=== PATIENT | female | born 1985 | race Caucasian/White ===

== ENCOUNTER 2016-07-28 20:07 | Emergency (ER) | payer OTHER ==
--- NOTE | 2016-07-28 22:01 | ED ORDER SUMMARY ---
..... Patient: RITA SHINE OrderSheet [facility] VisitID: [id number] [address] [place] [address] 31y, F Registration Date/Time: 07/28/2016 ORDER SHEET Weight: 102.0 kg (stated) Allergies: Septra GENERAL ORDERS: CBC w Diff Urgent (20:30 07/28/2016 RCollier R.N. per protocol) (Ack 20:34 LMuller) (20:34 LMuller) UA-Culture if indicated Urgent (20:30 07/28/2016 RCollier R.N. per protocol) (Ack 20:34 LMuller) (22:30 RCollier R.N.) Amylase Urgent (20:30 07/28/2016 RCollier R.N. per protocol) (Ack 20:34 LMuller) (20:34 LMuller) Lipase Urgent (20:30 07/28/2016 RCollier R.N. per protocol) (Ack 20:34 LMuller) (20:34 LMuller) Urine Urgent (20:30 07/28/2016 RCollier R.N. per protocol) (Ack 20:34 LMuller) (22:30 RCollier R.N.) NPO (20:30 07/28/2016 RCollier R.N. per protocol) (20:35 JQuivey R.N.) CMP Urgent (20:48 07/28/2016 HBivens A.R.N.P.) (Ack 20:53 LMuller) (20:54 RCollier R.N.) MEDICATION ORDERS: IV FLUIDS: IV Saline Lock (20:30 07/28/2016 RCollier R.N. per protocol) (Ack 20:31 RCollier R.N.) IV NS : initial bolus none -, then 1000 mL/hr (NOW) (20:38 07/28/2016 JQuivey R.N. verbal order read back to HBivens A.R.N.P.) (20:38 JQuivey R.N.) Toradol IV 30 mg (NOW) (20:48 07/28/2016 HBivens A.R.N.P.) (Ack 20:49 RCchavoier R.N.) (20:54 RCollier R.N.) Zofran IV 4 mg (NOW) (20:48 07/28/2016 HBivenspencer A.R.N.P.) (Ack 20:49 RCollier R.N.) (20:54 RCollier R.N.) ORDER SHEET NOTES: [Electronically signed by Andree Roy R.N. (22:31 07/28/2016)] [Electronically signed by Magaly DavidsonR.N.PGuy (22:50 07/28/2016)] [Electronically locked/signed by Andree Roy R.N. (22:31 07/28/2016)]
--- NOTE | 2016-07-28 22:01 | ED CLINICAL REPORT ---
Clinical Report - Physicians/Mid Levels [facility] [address] [place] [address] 07/28/2016 20:08 Patient: RITA SHINE Time Seen: 20:40; initial patient contact, initial documentation, patient care assumed. Arrived- By private vehicle. Historian- patient. HISTORY OF PRESENT ILLNESS Chief Complaint: VOMITING. This started today and is still present. It was abrupt in onset. The patient has had nausea. She has had severe vomiting (tntc). The vomiting has occurred numerous times and has been bilious. No feculent emesis, blood-tinged emesis, coffee-grounds emesis, frankly bloody emesis or unusually dark emesis. No diarrhea, black stools or bloody stools. She has had constant abdominal pain. The pain is described as located in the RUQ, epigastrium and LUQ and associated with nausea and vomiting. No diarrhea or radiation of abdominal pain to the back. The illness is described as moderate. Similar symptoms previously: None. Recent medical care: Not recently seen/assessed. REVIEW OF SYSTEMS No fever, muscle aches, difficulty with urination, dark urine or chest pain. No difficulty breathing. All systems otherwise negative, except as recorded above. PAST HISTORY See nurses notes. PROBLEMS: Obesity. Thyroid Disease. --20:17 Andree Roy R.N. ADDITIONAL SURGERIES: . --20:17 Andree Roy R.N. SOCIAL HISTORY Never smoker. No alcohol use or drug use. No recent travel. Is a local resident. FAMILY HISTORY Negative. ADDITIONAL NOTES The nursing notes have been reviewed with agreement regarding the chief complaint, HPI, ROS, PMH and patient medications and allergies. PHYSICAL EXAM Vital Signs: 07/28/2016 20:15 BP: 140/79. HR: 80. RR: 15. O2 saturation: 97%. Temp: 98.4 F. Pain level now: 8/10. Have been reviewed as normal and appear to be correct. Appearance: Alert. Oriented X3. No acute distress. Eyes: Pupils equal, round and reactive to light. Eyes normal inspection. Neck: Normal inspection. Neck supple. CVS: Normal heart rate and rhythm. Heart sounds normal. Pulses normal. Respiratory: No respiratory distress. Breath sounds normal. Abdomen: Soft. Mild tenderness in the right upper quadrant, epigastric area and left upper quadrant. No guarding, rebound tenderness or Cunningham's, obturator or psoas sign present. Bowel sounds normal. No organomegaly. No mass. Mildly obese. Tenderness present. Back: Normal inspection. Skin: Skin warm and dry. Normal skin color. No rash. Normal skin turgor. Extremities: Extremities exhibit normal ROM. No lower extremity edema. Neuro: Oriented X 3. No motor deficit. No sensory deficit. LABS, X-RAYS, AND EKG Laboratory Tests: UA-Culture if indicated: (KEISHA: 07/28/2016 21:38) ( [facility] 07/28/[facility] 21:54) Final results Test Result Flag Units (Reference) URINE COLOR YELLOW URINE APPEARANCE CLEAR URINE GLUCOSE NEGATIVE (NEGATIVE) URINE BILIRUBIN NEGATIVE (NEGATIVE) URINE KETONE 2+ (NEGATIVE) URINE SPECIFIC GRAVITY 1.020 (1.010-1.030) URINE PH 7.5 (5.0-8.0) URINE PROTEIN TRACE (NEGATIVE) URINE UROBILINOGEN 1.0 EU/dL (0.2-1.0) URINE NITRITE NEGATIVE (NEGATIVE) URINE BLOOD NEGATIVE (NEGATIVE) URINE LEUK ESTERASE NEGATIVE (NEGATIVE) URINE RBC NONE SEEN rbc/hpf (0-1) URINE WBC 0-1 wbc/hpf (0-1) URINE EPITHELIAL CELLS 1-3 EPI/hpf (0-5) URINE BACTERIA TRACE (<1+) (NONE SEEN) URINE COMMENT CULT NOT INDICATED 1+ MUCUSURINE CULTURES ARE SET-UP BASED ON THE FOLLOWING CRITERIA:POSITIVE NITRITEPOSITIVE LEUKOCYTE ESTERASEGREATER THAN 10 WHITE BLOOD CELLSMODERATE (2+) OR GREATER BACTERIA Urine: (KEISHA: 07/28/2016 21:38) ( [facility] [place]/28[place] 21:50) Final results Test Result Flag Units (Reference) URINE NEGATIVE CBC w Diff: (KEISHA: 07/28/2016 20:28) ( MsgRcvd 07/28/2016 20:42) Final results Test Result Flag Units (Reference) WHITE BLOOD COUNT 10.1 K/uL (4.5-11.5) RED BLOOD COUNT 4.37 M/uL (4.00-5.20) HEMOGLOBIN 13.0 gm/dL (12.0-16.0) HEMATOCRIT 39.3 % (36.0-46.0) MEAN CELL VOLUME 90 fL (80-100) MEAN CORPUSCULAR HGB 30 pg (26-34) MEAN CORPUSCULAR HGB CONC 33 g/dL (31-37) RED CELL DISTRIBUTION WIDTH 13.4 % (11.6-14.8) PLATELET COUNT 227 K/uL (150-400) NEUTROPHIL % 83.1 H % (50-75) LYMPH % 11.2 L % (25-40) MONO % 5.0 % (3-14) EOSINOPHIL % 0.4 % (0-4) BASOPHIL % 0.3 % (0-2) CMP: (KEISHA: 07/28/2016 20:18) ( MsgRcvd 07/28/2016 21:25) Final results Test Result Flag Units (Reference) GLUCOSE 107 mg/dL (70-110) BUN 13 mg/dL (7-18) CREATININE 1.2 mg/dL (0.6-1.3) Estimated GFR 54.99 mL/min Estimated GFR- >60 mL/min Note: Persistent reduction over 3 months in eGFR<60 mL/min/1.73 m2 defines CKD. Patients with eGFR values>=60 mL/min/1.73 m2 may also have CKD if evidence ofpersistent proteinuria. Additional information may be foundat www.kidney.org. SODIUM 142 mmol/L (136-145) POTASSIUM 4.2 mmol/L (3.5-5.1) CHLORIDE 104 mmol/L (98-107) CARBON DIOXIDE 25 mmol/L (21-32) CALCIUM 9.3 mg/dL (8.5-10.1) TOTAL PROTEIN 8.5 H g/dL (6.4-8.2) ALBUMIN 3.9 g/dL (3.3-5.0) BILIRUBIN, TOTAL 0.6 mg/dL (0.0-1.0) ALKALINE PHOSPHATASE 82 U/L (46-116) AST (SGOT) 27 U/L (15-37) ALT (SGPT) 34 U/L (12-78) Lipase: (KEISHA: 07/28/2016 20:28) ( MsgRcvd 07/28/2016 20:53) Final results Test Result Flag Units (Reference) LIPASE 119 U/L (73-393) AMYLASE 63 U/L (25-115) . PROGRESS AND PROCEDURES Patient counseled in person regarding the patient's stable condition, test results and diagnosis. 22:00. Differential Diagnosis: I considered gastritis, peptic ulcer disease, gastroesophageal reflux disease, gastroparesis, Crohn's disease, ulcerative colitis, small bowel obstruction, colonic obstruction, colon cancer, gastroenteritis, cholecystitis, pancreatitis, viral syndrome, enterocolitis, urinary tract infection, hepatitis, sepsis, drugs and as a possible cause of vomiting in this patient. This is a partial list of diagnoses considered. Above considerations are based on history, physical exam and laboratory data. Differential diagnosis was discussed with patient. Disposition: Discharged home in good and improved condition (22:01). Condition: good and stable. CLINICAL IMPRESSION Intractable vomiting with nausea. No dehydration or volume depletion. Not bilious. Acute right upper quadrant, epigastric and left upper quadrant abdominal pain. INSTRUCTIONS Take clear liquids only (frequent sips) for the next 24 hours until better. May continue medications with sips only. Advance diet as tolerated. Avoid. Warnings: GENERAL WARNINGS: Return or contact your physician immediately if your condition worsens or changes unexpectedly, if not improving as expected, or if other problems arise. SPECIFICALLY, return if you develop pain in the abdomen or pelvis, fever, the inability to keep fluids down, blood in vomitus, blood in diarrhea, fainting or lightheadedness. Prescription Medications: Zofran 4 mg: Take 1 orally every six hours as needed for nausea/vomiting. Dispense ten (10). No refills. Substitution is permissible. Ultram 50 mg tablets: take 1-2 orally every 6 hours as needed for pain. Dispense twenty (20). No refills. Substitution is permissible. Follow-up: Follow up with your doctor in about two days even if well. Call for an appointment. Summary of care provided to patient. Understanding of the discharge instructions verbalized by patient. (Electronically signed by Magaly Davidson A.R.N.P. 07/28/2016 22:50)
--- NOTE | 2016-07-28 22:01 | ED NURSING NOTES ---
Clinical Report - Nurses [facility] [address] [place] [address] 07/28/2016 20:08 Patient: RITA SHINE TRIAGE Triage time 20:15. Acuity: LEVEL 3. Chief Complaint: ABDOMINAL PAIN, NAUSEA and VOMITING. Alert. No acute distress. --20:20 Andree Roy R.N. 20:15 07/28/16. BP: 140/79. HR: 80. RR: 15. O2 saturation: 97% on room air. Temp: 98.4 F (oral). Pain level now: 01/15. --20:20 Andree Roy R.N. Weight: 102 kg stated. Height/Length: 69 inches Per Patient. BMI: 33.2. --20:19 Andree Roy R.N. Medications None. --20:16 Andree Roy R.N. Allergies . --20:16 Andree Roy R.N. History Arrived by private vehicle. Historian: patient. Primary physician (Mitzy). This started today. Onset. (at about 0530). 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 PAST MEDICAL HX: Immunizations: up-to-date. Last normal menstrual period unknown. SOCIAL HX: Never smoker. No alcohol use or drug use. --20:20 Andree Roy R.N. PROBLEMS: Obesity. Thyroid Disease. --20:17 Andree Roy R.N. ADDITIONAL SURGERIES: . --20:17 Andree Roy R.N. Interventions ID band on patient. To treatment room. --20:20 Andree Roy R.N. PHYSICAL ASSESSMENT Ambulatory to room. Patient gowned. GENERAL / NEURO / PSYCH: Alert. Oriented X 4. Appears in no acute distress. HEENT: Mucous membranes are pink. RESPIRATORY: Respirations not labored. CVS: Capillary refill less than 2 seconds. SKIN: Skin is warm and dry. --20:20 Andree Roy R.N. NURSING PROGRESS NOTES Pulse oximeter and NIBP monitor placed on patient; monitor alarms on. --20: Andree Roy R.N. Two patient identifiers checked. Call light placed in reach. Side rails up x 1. Bed placed in lowest position. Brakes of bed on. --20: Andree Roy R.N. Patient ready for evaluation- chart flagged. --20:21 Andree Roy R.N. 20:28 07/28/2016 Site #1 started via IV in the right antecubital space with an 20g angiocath, with aseptic technique and good blood return; one attempt. Blood drawn: rainbow set. Labeled in the presence of the patient and sent to the lab. Saline lock flushed with 10 mL saline. --20:28 Andree Roy R.N. ( pt aware of need for urine, unable to go at this time.). --20:29 Andree Roy R.N. 20:38 07/28/2016 Started bag #1 1000 mL IV Fluids IV NS (Saline); at 1000 mL/hr over 1 hour(s) via site #1 --20:38 Donald Kiser R.N. 20:52 07/28/2016 Zofran (Ondansetron HCl) IVP 4 mg given over 30 second(s) via site #1. Allergies verified and confirmed 5 rights. IV patency established. IV site checked: no pain, redness, or swelling. IV flushed thoroughly pre- and post-medication administration. IVP given by RN. --20:54 Andree Roy R.N. 20:53 07/28/2016 Toradol IVP 30 mg given over 1 minute(s) via site #1. Allergies verified and confirmed 5 rights. IV patency established. IV site checked: no pain, redness, or swelling. IV flushed thoroughly pre- and post-medication administration. IVP given by RN. --20:54 Andree Roy R.N. 21:35- pt ambulates to restroom to obtain urine sample. --21:35 Andree Roy R.N. 21:39. Patient ID band checked for patient name and birthdate: patient confirmed. Instructions provided to collect clean catch urine and patient verbalized understanding. Clean catch urine collected with return of yellow-colored sara-colored clear urine; sample sent to lab. Specimen labeled in the presence of the patient. --21:39 Andree Roy R.N. 21:39 07/28/16. BP: 132/73. HR: 79. RR: 15. O2 saturation: 98% on room air. Camarena-Gao pain scale: 09/15. --21:40 Andree Roy R.N. DISPOSITION / DISCHARGE 22:27 07/28/16. BP: 107/77. HR: 75. RR: 15. O2 saturation: 97% on room air. Temp: deferred. Camarena-Gao pain scale: 09/15. --22:28 Andree Roy R.N. Condition at departure: stable. No learning barriers present. Discharge instructions provided and reviewed with the patient. Reviewed medication(s) side effects, precautions, dosing and course information. Prescription(s) given to the patient. Patient verbalized understanding. Written instructions provided in Lao. The patient was discharged home and accompanied by mucking machine operator. She left the Emergency Department ambulatory and via private vehicle. Security Police driving. --22:28 Andree Roy R.N. 21:40 07/28/2016 IV Fluids IV NS Discontinued: bag #1 completed. Total amount infused: 1000 mL. IV patency established. IV site checked: no pain, redness, or swelling. IV flushed thoroughly. --22:30 Andree Roy R.N. 22:25 07/28/2016 Site #1 removed upon discharge. Catheter intact. Manual pressure and bandage applied. --22:28 Andree Roy R.N. Locked/Released at 07/28/2016 22:31 by Andree Roy R.N.
--- NOTE | 2016-07-28 22:01 | ED NURSING NOTES ---
Clinical Report - Nurses [facility] [address] [place] [address] 07/28/2016 20:08 Patient: RITA SHINE TRIAGE Triage time 20:15. Acuity: LEVEL 3. Chief Complaint: ABDOMINAL PAIN, NAUSEA and VOMITING. Alert. No acute distress. --20:20 Andree Roy R.N. 20:15 07/28/16. BP: 140/79. HR: 80. RR: 15. O2 saturation: 97% on room air. Temp: 98.4 F (oral). Pain level now: 01/15. --20:20 Andree Roy R.N. Weight: 102 kg stated. Height/Length: 69 inches Per Patient. BMI: 33.2. --20:19 Andree Roy R.N. Medications None. --20:16 Andree Roy R.N. Allergies . --20:16 Andree Roy R.N. History Arrived by private vehicle. Historian: patient. Primary physician (Mitzy). This started today. Onset. (at about 0530). 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 PAST MEDICAL HX: Immunizations: up-to-date. Last normal menstrual period unknown. SOCIAL HX: Never smoker. No alcohol use or drug use. --20:20 Andree Roy R.N. PROBLEMS: Obesity. Thyroid Disease. --20:17 Andree Roy R.N. ADDITIONAL SURGERIES: . --20:17 Andree Roy R.N. Interventions ID band on patient. To treatment room. --20:20 Andree Roy R.N. PHYSICAL ASSESSMENT Ambulatory to room. Patient gowned. GENERAL / NEURO / PSYCH: Alert. Oriented X 4. Appears in no acute distress. HEENT: Mucous membranes are pink. RESPIRATORY: Respirations not labored. CVS: Capillary refill less than 2 seconds. SKIN: Skin is warm and dry. --20:20 Andree Roy R.N. NURSING PROGRESS NOTES Pulse oximeter and NIBP monitor placed on patient; monitor alarms on. --20: Andree Roy R.N. Two patient identifiers checked. Call light placed in reach. Side rails up x 1. Bed placed in lowest position. Brakes of bed on. --20: Andree Roy R.N. Patient ready for evaluation- chart flagged. --20:21 Andree Roy R.N. 20:28 07/28/2016 Site #1 started via IV in the right antecubital space with an 20g angiocath, with aseptic technique and good blood return; one attempt. Blood drawn: rainbow set. Labeled in the presence of the patient and sent to the lab. Saline lock flushed with 10 mL saline. --20:28 Andree Roy R.N. ( pt aware of need for urine, unable to go at this time.). --20:29 Andree Roy R.N. 20:38 07/28/2016 Started bag #1 1000 mL IV Fluids IV NS (Saline); at 1000 mL/hr over 1 hour(s) via site #1 --20:38 Donald Kiser R.N. 20:52 07/28/2016 Zofran (Ondansetron HCl) IVP 4 mg given over 30 second(s) via site #1. Allergies verified and confirmed 5 rights. IV patency established. IV site checked: no pain, redness, or swelling. IV flushed thoroughly pre- and post-medication administration. IVP given by RN. --20:54 Andree Roy R.N. 20:53 07/28/2016 Toradol IVP 30 mg given over 1 minute(s) via site #1. Allergies verified and confirmed 5 rights. IV patency established. IV site checked: no pain, redness, or swelling. IV flushed thoroughly pre- and post-medication administration. IVP given by RN. --20:54 Andree Roy R.N. 21:35- pt ambulates to restroom to obtain urine sample. --21:35 Andree Roy R.N. 21:39. Patient ID band checked for patient name and birthdate: patient confirmed. Instructions provided to collect clean catch urine and patient verbalized understanding. Clean catch urine collected with return of yellow-colored sara-colored clear urine; sample sent to lab. Specimen labeled in the presence of the patient. --21:39 Andree Roy R.N. 21:39 07/28/16. BP: 132/73. HR: 79. RR: 15. O2 saturation: 98% on room air. Camarena-Gao pain scale: 09/15. --21:40 Andree Roy R.N. DISPOSITION / DISCHARGE 22:27 07/28/16. BP: 107/77. HR: 75. RR: 15. O2 saturation: 97% on room air. Temp: deferred. Camarena-Gao pain scale: 09/15. --22:28 Andree Roy R.N. Condition at departure: stable. No learning barriers present. Discharge instructions provided and reviewed with the patient. Reviewed medication(s) side effects, precautions, dosing and course information. Prescription(s) given to the patient. Patient verbalized understanding. Written instructions provided in Vietnamese. The patient was discharged home and accompanied by websphere architect. She left the Emergency Department ambulatory and via private vehicle. Unscrambler driving. --22:28 Andree Roy R.N. 21:40 07/28/2016 IV Fluids IV NS Discontinued: bag #1 completed. Total amount infused: 1000 mL. IV patency established. IV site checked: no pain, redness, or swelling. IV flushed thoroughly. --22:30 Andree Roy R.N. 22:25 07/28/2016 Site #1 removed upon discharge. Catheter intact. Manual pressure and bandage applied. --22:28 Andree Roy R.N. Locked/Released at 07/28/2016 22:31 by Andree Roy R.N.
--- NOTE | 2016-07-28 22:01 | ED ORDER SUMMARY ---
..... Patient: RITA SHINE OrderSheet [facility] VisitID: [id number] [address] [place] [address] 31y, F Registration Date/Time: 07/28/2016 ORDER SHEET Weight: 102.0 kg (stated) Allergies: Septra GENERAL ORDERS: CBC w Diff Urgent (20:30 07/28/2016 RCollier R.N. per protocol) (Ack 20:34 LMuller) (20:34 LMuller) UA-Culture if indicated Urgent (20:30 07/28/2016 RCollier R.N. per protocol) (Ack 20:34 LMuller) (22:30 RCollier R.N.) Amylase Urgent (20:30 07/28/2016 RCollier R.N. per protocol) (Ack 20:34 LMuller) (20:34 LMuller) Lipase Urgent (20:30 07/28/2016 RCollier R.N. per protocol) (Ack 20:34 LMuller) (20:34 LMuller) Urine Urgent (20:30 07/28/2016 RCollier R.N. per protocol) (Ack 20:34 LMuller) (22:30 RCollier R.N.) NPO (20:30 07/28/2016 RCollier R.N. per protocol) (20:35 JQuivey R.N.) CMP Urgent (20:48 07/28/2016 HBivens A.R.N.P.) (Ack 20:53 LMuller) (20:54 RCollier R.N.) MEDICATION ORDERS: IV FLUIDS: IV Saline Lock (20:30 07/28/2016 RCollier R.N. per protocol) (Ack 20:31 RCollier R.N.) IV NS : initial bolus none -, then 1000 mL/hr (NOW) (20:38 07/28/2016 JQuivey R.N. verbal order read back to HBivens A.R.N.P.) (20:38 JQuivey R.N.) Toradol IV 30 mg (NOW) (20:48 07/28/2016 HBivens A.R.N.P.) (Ack 20:49 RCchavoier R.N.) (20:54 RCollier R.N.) Zofran IV 4 mg (NOW) (20:48 07/28/2016 HBivenspencer A.R.N.P.) (Ack 20:49 RCollier R.N.) (20:54 RCollier R.N.) ORDER SHEET NOTES: [Electronically signed by Andree Roy R.N. (22:31 07/28/2016)] [Electronically signed by Magaly DavidsonR.N.PGuy (22:50 07/28/2016)] [Electronically locked/signed by Andree Roy R.N. (22:31 07/28/2016)]
--- NOTE | 2016-07-28 22:51 | ED MED RECONCILIATION SUMMARY ---
Patient: RITA SHINE Medication Reconciliation Report [facility] VisitID: [id number] [address] [place] [address] 31y, F Registration Date/Time: 07/28/2016 Weight: 102.0 kg Height/Length: 69 in. BMI: 33.2 ALLERGIES: Septra The patient's Home Medications are listed below: NONE. The source(s) of the original Home Medication information: Not obtained. The following Medications were given to the patient in the Emergency Department: IV NS IV Fluids bolus 0, then 1000 mL/hr, administered: 07/28/2016 8:38:00 PM Zofran [IVP] IVP 4 mg, administered: 07/28/2016 8:52:00 PM Toradol [IVP] IVP 30 mg, administered: 07/28/2016 8:53:00 PM The following Medications were prescribed to the patient: Zofran 4 mg: Take 1 orally every six hours as needed for nausea/vomiting. Dispense ten (10). No refills. Substitution is permissible. -- Magaly Davidson, Saida.R.N.P. Ultram 50 mg tablets: take 1-2 orally every 6 hours as needed for pain. Dispense twenty (20). No refills. Substitution is permissible. -- Magaly Davidson A.R.N.P.
--- NOTE | 2016-07-28 22:51 | ED DISCHARGE INSTRUCTIONS ---
Patient: RITA SHINE General Instructions [facility] VisitID: [id number] [address] [place] [address] 31y, F Registration Date/Time: 07/28/2016 Intractable vomiting with nausea. No dehydration or volume depletion. Not bilious. Acute right upper quadrant, epigastric and left upper quadrant abdominal pain. INSTRUCTIONS Take clear liquids only (frequent sips) for the next 24 hours until better. May continue medications with sips only. Advance diet as tolerated. Avoid. Warnings: GENERAL WARNINGS: Return or contact your physician immediately if your condition worsens or changes unexpectedly, if not improving as expected, or if other problems arise. SPECIFICALLY, return if you develop pain in the abdomen or pelvis, fever, the inability to keep fluids down, blood in vomitus, blood in diarrhea, fainting or lightheadedness. Prescription Medications: Zofran 4 mg: Take 1 orally every six hours as needed for nausea/vomiting. Dispense ten (10). No refills. Substitution is permissible. Ultram 50 mg tablets: take 1-2 orally every 6 hours as needed for pain. Dispense twenty (20). No refills. Substitution is permissible. Follow-up: Follow up with your doctor in about two days even if well. Call for an appointment. Summary of care provided to patient. Understanding of the discharge instructions verbalized by patient. ADDITIONAL INFORMATION Vomiting [6Yr-Adult] Vomiting is a common symptom that may be due to different causes. These include gastroenteritis ("stomach flu"), food poisoning and gastritis. There are other more serious causes of vomiting which may be hard to diagnose early in the illness. Therefore, it is important to watch for the warning signs listed below. The main danger from repeated vomiting is dehydration. This is due to excess loss of water and minerals from the body. When this occurs, body fluids must be replaced. Home Care: If symptoms are severe, rest at home for the next 24 hours. You may use acetaminophen (Tylenol) or ibuprofen (Motrin, Advil) to control fever, unless another medicine was prescribed. [NOTE : If you have chronic liver or kidney disease or ever had a stomach ulcer or GI bleeding, talk with your doctor before using these medicines.] (Aspirin should never be used in anyone under 18 years of age who is ill with a fever. It may cause severe liver damage.) Avoid tobacco and alcohol use, which may worsen your symptoms. If medicines for vomiting were prescribed, take as directed. Once vomiting stops, then follow these guidelines: During The First 12-24 Hours follow the diet below: FRUIT JUICES: Apple, grape juice, clear fruit drinks, and electrolyte replacement drinks. BEVERAGES: Soft drinks without caffeine; mineral water (plain or flavored), decaffeinated tea and coffee. SOUPS: Clear broth, consomm and bouillon DESSERTS: Plain gelatin, popsicles and fruit juice bars. As you feel better, you may add 6-8 ounces of yogurt per day. During The Next 24 Hours you may add the following to the above: Hot cereal, plain toast, bread, rolls, crackers Plain noodles, rice, mashed potatoes, chicken noodle or rice soup Unsweetened canned fruit (avoid pineapple), bananas Limit caffeine and chocolate. No spices or seasonings except salt. During The Next 24 Hours Gradually resume a normal diet, as you feel better and your symptoms lessen. Follow Up with your doctor as advised if you are not improving over the next 2-3 days. Get Prompt Medical Attention if any of the following occur: Constant right-sided lower abdominal pain or increasing general abdominal pain Continued vomiting (unable to keep liquids down) for 24 hours Frequent diarrhea (more than 5 times a day); blood (red or black color) or mucus in diarrhea Reduced urine output or extreme thirst Weakness, dizziness or fainting Unusually drowsy or confused Fever of 100.4F (38C) oral or higher, not better with fever medication Yellow color of the eyes or skin Viral Gastroenteritis (6Yr-Adult) Gastroenteritis is another name for thestomach flu.It is most often caused by a virus that affects the stomach and intestinal tract. Symptoms include stomach cramping and fever, vomiting and/or diarrhea, and can last from 2 to 7 days. The danger from repeated vomiting or diarrhea is dehydration. This is the loss of too much water and minerals from the body. When this occurs, body fluids must be replaced. Antibiotics are not effective for this illness, but simple home treatment will be helpful. Home Care If symptoms are severe, rest at home for the next 24 hours. Avoid tobacco, caffeine, and alcohol use, which can worsen symptoms. Acetaminophen (Tylenol) or ibuprofen (Motrin, Advil) may be usedfor fever or pain unless another medication was prescribed. NOTE: If you have chronic liver or kidney disease or ever had a stomach ulcer or GI bleeding, talk with your doctor before using these medicines. Aspirin should never be used in anyone under 18 years of age who is ill with a fever. It may cause severe liver damage. If medicines for diarrhea or vomiting were prescribed, be sure they are takenonly as directed. If vomiting, drink small amounts of clear fluids (such as water, sports drinks, clear sodas) at frequent intervals to prevent dehydration. Start with 1 to 2 tablespoons every 10 minutes. Once vomiting stops, follow these guidelines: During The First 12 To 24 Hours follow the diet below: Beverages: Sport drinks like Gatorade, soft drinks without caffeine; earl emily, mineral water (plain or flavored), decaffeinated tea and coffee. Soups: Clear broth, consomm and bouillon Desserts: Plain gelatin (Jell-O), Popsicles and fruit juice bars. During The Next 24 Hours you may add the following to the above: Hot cereal, plain toast, bread, rolls, crackers Plain noodles, rice, mashed potatoes, chicken noodle or rice soup Unsweetened canned fruit (avoid pineapple), bananas Limit fat intake to less than 15 grams per day by avoiding margarine, butter, oils, mayonnaise, sauces, gravies, fried foods, peanut butter, meat, poultry, and fish. Limit fiber; avoid raw or cooked vegetables, fresh fruits (except bananas), and bran cereals. Limit caffeine and chocolate. Do not use spices or seasonings except salt. During The Next 24 Hours The patient can gradually resume a normal diet as symptoms lessen. Preventing Spread Hand washing with soap and water is the best way to prevent the spread of viruses. Caregivers should wash their hands before andafter touching the sick person. The sick person, as well as everyone in the family,should wash their hands after using the toilet and before meals. Clean the toilet after each use. People with diarrhea should not prepare food for others. If you are preparing your own foods, wash your hands before and after. Follow Up with your doctor as advised. Call your doctor if you are not improving over the next 2 to 3 days. If a stool (diarrhea) sample was taken, you may call in 2 days (or as directed) for the results. Get Prompt Medical Attention if any of the following occur: Increasing abdominal pain Continued vomiting (unable to keep liquids down) Frequent diarrhea (more than 5 times a day) Blood in vomit or stool (black or red color) Dark urine, reduced urine output, or extreme thirst Weakness, dizziness, fainting Drowsiness, confusion, stiff neck, or seizure Fever of 100.4F (38C) oral or higher, not better with fever medication New rash Abdominal Pain, Unknown Cause (Female) The exact cause of your abdominal (stomach) pain is not certain. This does not mean that this is something to worry about, or the right tests were not done. Everyone likes to know the exact cause of the problem, but sometimes with abdominal pain, there is no clear-cut cause, and this could be a good thing. The good news is that your symptoms can be treated, and you will feel better. Your condition does not seem serious now; however, sometimes the signs of a serious problem may take more time to appear. For this reason,it is important for you to watch for any new symptoms, problems,or worsening of your condition. Over the next few days, the abdominal pain may come and go, or be continuous. Other common symptoms can include nausea and vomiting. Sometimes it can be difficult to tell if you feel nauseous, you may just feel bad and not associate that feeling with nausea. Constipation, diarrhea, and a fever may go along with the pain. The pain may continue even if treated correctly over the following days. Depending on how things go, sometimes the cause can become clear and may require further or different treatment. Additional evaluations, medications, or tests may be needed. Home care Your health care provider may prescribe medications for pain, symptoms, or an infection. Follow the health care provider's instructions for taking these medications. General care Rest until your next exam. No strenuous activities. Try to find positions that ease discomfort. A small pillow placed on the abdomen may help relieve pain. Something warm on your abdomen (such as a heating pad) may help, but be careful not to burn yourself. Diet Do not force yourself to eat, especially if having cramps, vomiting, or diarrhea. Water is important so you do not get dehydrated. Soup may also be good. Sports drinks may also help, especially if they are not too acidic. Make sure you don't drink sugary drinks as this can make things worse. Take liquids in small amounts. Do not guzzle them. Caffeine sometimes makes the pain and cramping worse. Avoid dairy products if you have vomiting or diarrhea. Don't eat large amounts at a time. Wait a few minutes between bites. Eat a diet low in fiber (called a low-residue diet). Foods allowed include refined breads, white rice, fruit and vegetable juices without pulp, tender meats. These foods will pass more easily through the intestine. Avoid whole-grain foods, whole fruits and vegetables, meats, seeds and nuts, fried or fatty foods, dairy, alcohol and spicy foods until your symptoms go away. Follow-up care Follow up with your health care provider as instructed, or if your pain does not begin to improve in the next 24 hours. When to seek medical care Seek prompt medical care if any of the following occur: Pain gets worse or moves to the right lower abdomen New or worsening vomiting or diarrhea Swelling of the abdomen Unable to pass stool for more than three days Fever of 100.4F (38C) or higher, or as directed by your healthcare provider. Blood in vomit or bowel movements (dark red or black color) Jaundice (yellow color of eyes and skin) Weakness, dizziness Chest, arm, back, neck or jaw pain Unexpected vaginal bleeding or missed period Call 911 Call emergency services if any of the following occur: Trouble breathing Confusion Fainting or loss of consciousness Rapid heart rate Seizure Clear Liquid Diet Clear liquids are any liquid that you can see through as well as those that are very easy to digest. This is used while the body is recovering from irritation or infection of the stomach or intestinal tract. It may also be used before special procedures or surgery. This diet is to be used no more than three days. You may include the following items. Adults Adults should drink a total of 23 quarts of liquid per day. It may be easier to drink small frequent servings rather than a few large ones. Liquids can include: Fruit juices.Strained orange juice or lemonade (no pulp), apple, grape and cranberry juice, clear fruit drinks, sports drinks Beverages.Sport drinks, sodas, mineral water (plain or flavored), tea, black coffee, liquid gelatin (add twice the recommended amount of water) Soups.Clear broth, consomm, bouillon Desserts.Plain gelatin, popsicles, fruit juice bars Children Over 2 years old The following liquids are acceptable for children over age 2: Fruit juices.Strained orange juice or lemonade (no pulp), apple, grape and cranberry juice, clear fruit drinks Beverages. Sports drinks, sodas, mineral water (plain or flavored), tea, liquid gelatin (add twice the recommended amount of water) Soups. Clear broth, consomm, bouillon Desserts. Plain gelatin, popsicles, fruit juice bars Children under 2 years old Oral rehydration fluids such are available at drug stores and most grocery stores without a prescription. Meagher Diet A bland diet is used for patients with an upset stomach. It consists of foods that are mild and easy to digest. It is better to eat small frequent meals rather than three large meals a day. BEVERAGES OK: Fruit juices, non-caffeinated teas and coffee, non-carbonated bush AVOID: Carbonated beverage, caffeinated tea and coffee, all alcoholic beverages BREAD OK: Refined white, wheat or rye bread, kaya or soda crackers, Pilar toast, plain rolls, bagels AVOID: Whole-grain bread CEREAL OK: Refined cereals: cooked or ready to eat AVOID: Whole grain cereals and granola, or those containing bran, seeds or nuts DESSERTS OK: Peanut butter and all others except those to "avoid" AVOID: Chocolate, cocoa, coconut, popcorn, nuts, seeds, jam, marmalade FRUITS OK: Canned, cooked, frozen or fresh fruits without seeds or tough skin AVOID: Olives, skin and seeds of fruit MEATS OK: All fresh or preserved meat, fish and fowl AVOID: Any that are prepared with those spices to "avoid" CHEESE & EGGS OK: Eggs, cottage cheese, cream cheese, other cheeses AVOID: All cheeses made with those spices to "avoid" POTATOES & PASTA OK: Potato, rice, macaroni, noodles, spaghetti AVOID: None SOUPS OK: All soups without heavy seasoning AVOID: Soups made with those spices to "avoid" VEGETABLES OK: Canned, cooked, fresh or frozen mildly flavored vegetables without seeds, skins or coarse fiber AVOID: Vegetables prepared with those spices to "avoid"; skin and seeds of vegetables and those with coarse fiber SPICES OK: Salt, lemon and [place] juice, vinegar, all extracts, sadia, cinnamon, thyme, mace, allspice, paprika AVOID: [place] powder, cloves, pepper, seed spices, garlic, gravy pickles, highly seasoned salad dressings Clear Liquid Diet Clear liquids are any liquid that you can see through as well as those that are very easy to digest. This is used while the body is recovering from irritation or infection of the stomach or intestinal tract. It may also be used before special procedures or surgery. This diet is to be used no more than three days. You may include the following items. Adults Adults should drink a total of 23 quarts of liquid per day. It may be easier to drink small frequent servings rather than a few large ones. Liquids can include: Fruit juices.Strained orange juice or lemonade (no pulp), apple, grape and cranberry juice, clear fruit drinks, sports drinks Beverages.Sport drinks, sodas, mineral water (plain or flavored), tea, black coffee, liquid gelatin (add twice the recommended amount of water) Soups.Clear broth, consomm, bouillon Desserts.Plain gelatin, popsicles, fruit juice bars Children Over 2 years old The following liquids are acceptable for children over age 2: Fruit juices.Strained orange juice or lemonade (no pulp), apple, grape and cranberry juice, clear fruit drinks Beverages. Sports drinks, sodas, mineral water (plain or flavored), tea, liquid gelatin (add twice the recommended amount of water) Soups. Clear broth, consomm, bouillon Desserts. Plain gelatin, popsicles, fruit juice bars Children under 2 years old Oral rehydration fluids such are available at drug stores and most grocery stores without a prescription. Ondansetron Oral disintegrating tablet What is this medicine? ONDANSETRON (on RICHARD se cassidy) is used to treat nausea and vomiting caused by chemotherapy. It is also used to prevent or treat nausea and vomiting after surgery. How should I use this medicine? These tablets are made to dissolve in the mouth. Do not try to push the tablet through the foil backing. With dry hands, peel away the foil backing and gently remove the tablet. Place the tablet in the mouth and allow it to dissolve, then swallow. While you may take these tablets with water, it is not necessary to do so. Talk to your external relations manager regarding the use of this medicine in children. Special care may be needed. What side effects may I notice from receiving this medicine? Side effects that you should report to your doctor or health daycare assistant as soon as possible: allergic reactions like skin rash, itching or hives, swelling of the face, lips, or tongue breathing problems dizziness fast or irregular heartbeat feeling faint or lightheaded, falls fever and chills swelling of the hands and feet tightness in the chest Side effects that usually do not require medical attention (report to your doctor or health daycare assistant if they continue or are bothersome): constipation or diarrhea headache What may interact with this medicine? Do not take this medicine with any of the following medications: -apomorphine -cisapride -dofetilide -dronedarone -pimozide -thioridazine -ziprasidone This medicine may also interact with the following medications: -carbamazepine -phenytoin -rifampicin -tramadol -other medicines that prolong the QT interval (cause an abnormal heart rhythm) What if I miss a dose? If you miss a dose, take it as soon as you can. If it is almost time for your next dose, take only that dose. Do not take double or extra doses. Where should I keep my medicine? Keep out of the reach of children. Store between 2 and 30 degrees C (36 and 86 degrees F). Throw away any unused medicine after the expiration date. What should I tell my health care provider before I take this medicine? They need to know if you have any of these conditions: heart disease history of irregular heartbeat liver disease low levels of magnesium or potassium in the blood an unusual or allergic reaction to ondansetron, granisetron, other medicines, foods, dyes, or preservatives or trying to get breast-feeding What should I watch for while using this medicine? Check with your doctor or health daycare assistant as soon as you can if you have any sign of an allergic reaction. Tramadol Hydrochloride Oral tablet What is this medicine? TRAMADOL (TRA ma dole) is a pain reliever. It is used to treat moderate to severe pain in adults. How should I use this medicine? Take this medicine by mouth with a full glass of water. Follow the directions on the prescription label. If the medicine upsets your stomach, take it with food or milk. Do not take more medicine than you are told to take. Talk to your external relations manager regarding the use of this medicine in children. Special care may be needed. What side effects may I notice from receiving this medicine? Side effects that you should report to your doctor or health daycare assistant as soon as possible: allergic reactions like skin rash, itching or hives, swelling of the face, lips, or tongue breathing difficulties, wheezing confusion itching light headedness or fainting spells redness, blistering, peeling or loosening of the skin, including inside the mouth seizures Side effects that usually do not require medical attention (report to your doctor or health daycare assistant if they continue or are bothersome): constipation dizziness drowsiness headache nausea, vomiting What may interact with this medicine? Do not take this medicine with any of the following medications: MAOIs like Carbex, Eldepryl, Marplan, Nardil, and Parnate This medicine may also interact with the following medications: alcohol or medicines that contain alcohol antihistamines benzodiazepines bupropion carbamazepine or oxcarbazepine clozapine cyclobenzaprine digoxin furazolidone linezolid medicines for depression, anxiety, or psychotic disturbances medicines for migraine headache like almotriptan, eletriptan, frovatriptan, naratriptan, rizatriptan, sumatriptan, zolmitriptan medicines for pain like pentazocine, buprenorphine, butorphanol, meperidine, nalbuphine, and propoxyphene medicines for sleep muscle relaxants naltrexone phenobarbital phenothiazines like perphenazine, thioridazine, chlorpromazine, mesoridazine, fluphenazine, prochlorperazine, promazine, and trifluoperazine procarbazine warfarin What if I miss a dose? If you miss a dose, take it as soon as you can. If it is almost time for your next dose, take only that dose. Do not take double or extra doses. Where should I keep my medicine? Keep out of the reach of children. Store at room temperature between 15 and 30 degrees C (59 and 86 degrees F). Keep container tightly closed. Throw away any unused medicine after the expiration date. What should I tell my health care provider before I take this medicine? They need to know if you have any of these conditions: brain tumor depression drug abuse or addiction head injury if you frequently drink alcohol containing drinks kidney disease or trouble passing urine liver disease lung disease, asthma, or breathing problems seizures or epilepsy suicidal thoughts, plans, or attempt; a previous suicide attempt by you or a family member an unusual or allergic reaction to tramadol, codeine, other medicines, foods, dyes, or preservatives or trying to get breast-feeding What should I watch for while using this medicine? Tell your doctor or health daycare assistant if your pain does not go away, if it gets worse, or if you have new or a different type of pain. You may develop tolerance to the medicine. Tolerance means that you will need a higher dose of the medicine for pain relief. Tolerance is normal and is expected if you take this medicine for a long time. Do not suddenly stop taking your medicine because you may develop a severe reaction. Your body becomes used to the medicine. This does NOT mean you are addicted. Addiction is a behavior related to getting and using a drug for a non-medical reason. If you have pain, you have a medical reason to take pain medicine. Your doctor will tell you how much medicine to take. If your doctor wants you to stop the medicine, the dose will be slowly lowered over time to avoid any side effects. You may get drowsy or dizzy. Do not drive, use machinery, or do anything that needs mental alertness until you know how this medicine affects you. Do not stand or sit up quickly, especially if you are an older patient. This reduces the risk of dizzy or fainting spells. Alcohol can increase or decrease the effects of this medicine. Avoid alcoholic drinks. You may have constipation. Try to have a bowel movement at least every 2 to 3 days. If you do not have a bowel movement for 3 days, call your doctor or health daycare assistant. Your mouth may get dry. Chewing sugarless gum or sucking hard candy, and drinking plenty of water may help. Contact your doctor if the problem does not go away or is severe. You have been given the following additional information: Vomiting (6Y-Adult) Gastroenteritis, Viral (6Y-Adult) Abdominal Pain, Unknown Cause, (Female) Diet, Clear Liquid Diet, Meagher (Adult) Diet, Clear Liquid Ondansetron Oral disintegrating tablet Tramadol Hydrochloride Oral tablet (Electronically signed by Magaly Davidson A.R.N.P. 07/28/2016 22:50)
--- NOTE | 2016-07-28 22:51 | ED MAR SUMMARY ---
..... Medication Administration Record [facility] [address] [place] [address] Patient: RITA SHINE Visit ID: [id number] 31y, F Weight: 102.0 kg Height/Length: 69 in BMI: 33.2 ALLERGIES: Septra Start 20:38 07/28/2016 Donald Kiser R.N., Stop 21:40 07/28/2016 Andree Roy R.N. Medication Administered: IV NS (SALINE), Dose: IV Fluids over 1 hour(s), Rate: 1000 mL/hr, Dispensed: 1000 mL bag, Site: #1 right AC. Medication Ordered: IV NS : initial bolus none -, then 1000 mL/hr (NOW). Given 20:52 07/28/2016 Andree Roy R.N. Medication Administered: ZOFRAN [IVP] (ONDANSETRON HCL), Dose: 4 mg IVP over 30 second(s), Site: #1 right AC. Medication Ordered: Zofran IV 4 mg (NOW). Given 20:53 07/28/2016 Andree Roy R.N. Medication Administered: TORADOL [IVP], Dose: 30 mg IVP over 1 minute(s), Site: #1 right AC. Medication Ordered: Toradol IV 30 mg (NOW).
--- NOTE | 2016-07-28 22:51 | ED MAR SUMMARY ---
..... Medication Administration Record [facility] [address] [place] [address] Patient: RITA SHINE Visit ID: [id number] 31y, F Weight: 102.0 kg Height/Length: 69 in BMI: 33.2 ALLERGIES: Septra Start 20:38 07/28/2016 Donald Kiser R.N., Stop 21:40 07/28/2016 Andree Roy R.N. Medication Administered: IV NS (SALINE), Dose: IV Fluids over 1 hour(s), Rate: 1000 mL/hr, Dispensed: 1000 mL bag, Site: #1 right AC. Medication Ordered: IV NS : initial bolus none -, then 1000 mL/hr (NOW). Given 20:52 07/28/2016 Andree Roy R.N. Medication Administered: ZOFRAN [IVP] (ONDANSETRON HCL), Dose: 4 mg IVP over 30 second(s), Site: #1 right AC. Medication Ordered: Zofran IV 4 mg (NOW). Given 20:53 07/28/2016 Andree Roy R.N. Medication Administered: TORADOL [IVP], Dose: 30 mg IVP over 1 minute(s), Site: #1 right AC. Medication Ordered: Toradol IV 30 mg (NOW).
--- NOTE | 2016-07-28 22:51 | ED MED RECONCILIATION SUMMARY ---
Patient: RITA SHINE Medication Reconciliation Report [facility] VisitID: [id number] [address] [place] [address] 31y, F Registration Date/Time: 07/28/2016 Weight: 102.0 kg Height/Length: 69 in. BMI: 33.2 ALLERGIES: Septra The patient's Home Medications are listed below: NONE. The source(s) of the original Home Medication information: Not obtained. The following Medications were given to the patient in the Emergency Department: IV NS IV Fluids bolus 0, then 1000 mL/hr, administered: 07/28/2016 8:38:00 PM Zofran [IVP] IVP 4 mg, administered: 07/28/2016 8:52:00 PM Toradol [IVP] IVP 30 mg, administered: 07/28/2016 8:53:00 PM The following Medications were prescribed to the patient: Zofran 4 mg: Take 1 orally every six hours as needed for nausea/vomiting. Dispense ten (10). No refills. Substitution is permissible. -- Magaly Davidson, Saida.R.N.P. Ultram 50 mg tablets: take 1-2 orally every 6 hours as needed for pain. Dispense twenty (20). No refills. Substitution is permissible. -- Magaly Davidson A.R.N.P.
== END 2016-07-28 22:28 | disposition home or self-care (01) ==
LOC: ED SRH 20:07
DX: R11.2 Nausea with vomiting, unspecified (principal); R10.11 Right upper quadrant pain; R10.12 Left upper quadrant pain; R10.13 Epigastric pain; E07.9 Disorder of thyroid, unspecified; Z88.8 Allergy status to other drugs, medicaments and biological substances
CPT/HCPCS: 90004; 90100; 92235; 92530; 93070; 95059